=== PATIENT | male | born 1990 | race Two or more races ===

== ENCOUNTER 2017-06-10 10:48 | Inpatient (IN) | payer OTHER ==
[2017-06-10 11:36] VITALS: BMI 22.4
--- NOTE | 2017-06-10 15:00 | HP ---
COWS - Scale Resting Pulse: 0= [place] 80 or Below Sweatin=Flushed/Facial Moisture Restless Observation: 1= Difficult to Sit Still Pupil Size: 0= Normal to Room Light Bone or Joint Aches: 2= Severe Diffuse Aches Runny Nose/ Eye Tearin= Runny Nose/Eyes GI Upset > 30mins: 2= Nausea/Diarrhea Tremor Observation: 2= Slight Tremor Visible Yawning Observation: 2= >3x During Session Anxiety or Irritability: 2=Irritable/Anxious Goose Flesh Skin: 3=Piloerection COWS Score: 18 CIWA Score - CIWA Score Nausea/Vomitin-Mild Nausea/No Vomiting Muscle Tremors: 4-Moderate,w/Arms Extend Anxiety: 3 Agitation: 3 Paroxysmal Sweats: 3 Orientation: 0-Oriented Tacttile Disturbances: 0-None Auditory Disturbances: 0-None Visual Disturbances: 0-None Headache: 1-Very Mild CIWA-Ar Total Score: 15 Admission ROS BHS - HPI Chief Complaint: I need to get it right. Allergies/Adverse Reactions: Allergies Allergy/AdvReac Type Severity Reaction Status Date / Time No Known Allergies Allergy Verified 06/10/17 12:28 History of Present Illness: pt is a 26yr old male with a history of percocet, heroin, xanax dependence seeking detox for treatment. this is his first time in detox. Exam Limitations: No Limitations - Ebola screening Have you traveled outside of the country in the last 21 days: No Have you had contact with anyone from an Ebola affected area: No Have you been sick,other than usual withdrawal symptoms: No Do you have a fever: No - Review of Systems Constitutional: Chills, Diaphoresis, Loss of Appetite, Night Sweats, Changes in sleep EENT: reports: Tearing, Nose Congestion Respiratory: reports: No Symptoms reported Cardiac: reports: No Symptoms Reported GI: reports: Constipated, Poor Appetite, Poor Fluid Intake : reports: No Symptoms Reported Musculoskeletal: reports: Back Pain Integumentary: reports: Flushing, Sweating Neuro: reports: Tingling, Tremors Endocrine: reports: Excessive Sweating, Flushing, Intolerance to Cold, Intolerance to Heat Hematology: reports: No Symptoms Reported Psychiatric: reports: Judgement Intact, Mood/Affect Appropiate, Orientated x3, Agitated, Anxious Other Systems: Reviewed and Negative Patient History - Patient Medical History Hx Anemia: No Hx Asthma: No Hx Chronic Obstructive Pulmonary Disease (COPD): No Hx Cancer: No Hx Cardiac Disorders: No Hx Congestive Heart Failure: No Hx Hypertension: No Hx Hypercholesterolemia: No Hx Pacemaker: No HX Cerebrovascular Accident: No Hx Seizures: No Hx Dementia: No Hx Diabetes: No Hx Gastrointestinal Disorders: No Hx Liver Disease: No Hx Genitourinary Disorders: No Hx Sexually Transmitted Disorders: No Hx Renal Disease (ESRD): No Hx Thyroid Disease: No Hx Human Immunodeficiency Virus (HIV): No Hx Hepatitis C: No Hx Depression: Yes Hx Suicide Attempt: No (denies) Hx Bipolar Disorder: No Hx Schizophrenia: No - Patient Surgical History Past Surgical History: No Hx Neurologic Surgery: No Hx Cataract Extraction: No Hx Cardiac Surgery: No Hx Lung Surgery: No Hx Breast Surgery: No Hx Breast Biopsy: No Hx Abdominal Surgery: No Hx Appendectomy: No Hx Cholecystectomy: No Hx Genitourinary Surgery: No Hx Section: No Hx Orthopedic Surgery: No - PPD History Previous Implant?: Yes Documented Results: Negative w/o proof Implanted On Prior R Admission?: No PPD to be Administered?: Yes - Reproductive History Patient is a Female of Child Bearing Age (11 -55 yrs old): No - Smoking Cessation Smoking history: Current every day smoker Have you smoked in the past 12 months: Yes Aproximately how many cigarettes per day: 20 Hx Chewing Tobacco Use: No Initiated information on smoking cessation: Yes 'Breaking Loose' booklet given: 06/10/17 - Substance & Tx. History Hx Alcohol Use: Yes Hx Substance Use: Yes Substance Use Type: Alcohol, Cocaine, Heroin, Marijuana, Opiates Hx Substance Use Treatment: Yes - Substances Abused Heroin Route: Inhalation Frequency: 1-3 times last 30 days Amount used: 1 bag Age of first use: 26 Date of Last Use: 06/09/17 Percocet Route: Oral Frequency: Daily Amount used: 5-6 tabs. (10-325 mg.) Age of first use: 16 Date of Last Use: 06/09/17 Xanax Route: Oral Frequency: 3-6 times per week Amount used: 6-8 mg. Age of first use: 26 Date of Last Use: 06/08/17 Family Disease History - Family Disease History Family History: Denies Admission Physical Exam BHS - Vital Signs Vital Signs: Vital Signs - 24 hr 11/30/17 11:32 Temperature 96.8 F L Pulse Rate 80 Respiratory 20 Rate Blood Pressure 120/70 - Physical General Appearance: Yes: Appropriately Dressed, Moderate Distress, Tremorous, Irritable, Sweating, Anxious HEENTM: Yes: Normal Voice, Hearing Decreased, Nasal Congestion, Rhinorrhea Respiratory: Yes: Lungs Clear, Normal Breath Sounds, No Respiratory Distress Neck: Yes: No masses,lesions,Nodules Breast: Yes: Within Normal Limits Cardiology: Yes: Regular Rhythm, Regular Rate, S1, S2 Abdominal: Yes: Normal Bowel Sounds, Non Tender, Flat Genitourinary: Yes: Within Normal Limits Back: Yes: Normal Inspection Musculoskeletal: Yes: full range of Motion, Back pain Extremities: Yes: Normal Inspection, Normal Range of Motion, Tremors Neurological: Yes: Fully Oriented, Alert, Normal Response Integumentary: Yes: Normal Color, Diaphoresis Lymphatic: Yes: Within Normal Limits - Diagnostic (1) Opioid dependence with withdrawal Current Visit: Yes Status: Chronic (2) Sedative, hypnotic or anxiolytic dependence with withdrawal, uncomplicated Current Visit: Yes Status: Chronic (3) Nicotine dependence Current Visit: Yes Status: Chronic Qualifiers: Nicotine product type: cigarettes Substance use status: uncomplicated Qualified Code(s): F17.210 - Nicotine dependence, cigarettes, uncomplicated Cleared for Admission [facility] - Detox or Rehab [facility] Level of Care: Medically Managed Detox Regimen/Protocol: Methadone/Valium [facility] Breath Alcohol Content Breath Alcohol Content: 0 Urine Drug Screen - Results Drug Screen Negative: No Urine Drug Screen Results: THC-Marijuana, OPI-Opiates, BZO-Benzodiazepines, OXY- Oxycodone
[2017-06-10] MEDS ORDERED: guaiFENesin/D-METHORPHAN HB 10 ML UNIT-DOSE CUPS PO PRN (15:08)
[2017-06-10] MEDS ORDERED: MENTHOL/PHENOL 1 EACH UD MM PRN (15:08)
[2017-06-10] MEDS ORDERED: MAGNESIUM CITRATE 300 ML BOTTLE PO PRN (15:08)
[2017-06-10] MEDS ORDERED: IBUPROFEN 400 MG TABLET (FP) PO PRN (15:08)
[2017-06-10] MEDS ORDERED: hydrOXYzine PAMOATE 50 MG CAPSULE (FP) PO PRN (15:08)
[2017-06-10] MEDS ORDERED: LOPERAMIDE HCL 2 MG CAPSULE PO PRN (15:08)
[2017-06-10] MEDS ORDERED: ACETAMINOPHEN 325 MG TABLET (FP) PO PRN (15:08)
[2017-06-10] MEDS ORDERED: MAGNESIUM HYDROX 2400MG/30ML ORAL SUSPENSION 30 ML CUP PO PRN (15:08)
[2017-06-10] MEDS ORDERED: NICOTINE POLACRILEX 4 MG GUM BUC PRN (15:08)
[2017-06-10] MEDS ORDERED: P-EPHED 60MG/TRIPROLIDI 2.5MG TABLET PO PRN (15:08)
[2017-06-10] MEDS ORDERED: MAG HYDROX/AL HYDROX/SIMETH 30 ML UNIT-DOSE CUP PO PRN (15:08)
[2017-06-10] MEDS ORDERED: diazePAM 5 MG TABLET PO ONE (15:15)
[2017-06-10] MEDS ORDERED: METHADONE HCL 10 MG TABLET (FOR DETOX USE ONLY) PO ONE ×2 (15:16→23:00)
[2017-06-10] MEDS: diazePAM 5 MG TABLET PO PRN (15:42)
--- NOTE | 2017-06-10 15:56 | CONSULT ---
[facility] Psychiatric Consult - Data Date of interview: 06/10/17 Admission source: [facility] Identifying data: This is 26 years old male with no psychiatric hospitalization history intoxicated with: Opioids, Xanax and Nicotine Substance Abuse History: - Smoking Cessation. Smoking history: Current every day smoker. Have you smoked in the past 12 months: Yes. Aproximately how many cigarettes per day: 20. Hx Chewing Tobacco Use: No. Initiated information on smoking cessation: Yes. 'Breaking Loose' booklet given: 06/10/17. - Substance & Tx. History. Hx Alcohol Use: Yes. Hx Substance Use: Yes. Substance Use Type : Alcohol, Cocaine, Heroin, Marijuana, Opiates. Hx Substance Use Treatment: Yes. - Substances Abused. Heroin. Route: Inhalation. Frequency: 1-3 times last 30 days. Amount used: 1 bag. Age of first use: 26. Date of Last Use: 06/09/17. Percocet. Route: Oral. Frequency: Daily. Amount used: 5-6 tabs. (10-325 mg.). Age of first use: 16. Date of Last Use: 06/09/17. Xanax. Route: Oral. Frequency: 3-6 times per week. Amount used: 6-8 mg. Age of first use: 26. Date of Last Use: 06/08/17 Medical History: Denies any significant medical issues Psychiatric History: Patient reports history of anxiety and insomnia, reports takiong prior to admission: Trazodone 100mg po qhs Physical/Sexual Abuse/Trauma History: Denies Additional Comment: Trazodone 100mg po qhs Mental Status Exam - Mental Status Exam Alert and Oriented to: Person Cognitive Function: Fair Patient Appearance: Unkempt Mood: Anxious Affect: Mood Congruent Patient Behavior: Cooperative Speech Pattern: Appropriate Voice Loudness: Normal Thought Process: Goal Oriented Thought Disorder: Being Controlled Hallucinations: Denies Suicidal Ideation: Denies Homicidal Ideation: Denies Insight/Judgement: Fair Sleep: Difficulty falling asleep Appetite: Weight loss Muscle strength/Tone: Normal Gait/Station: Normal Additional Comments: Trazodone 100mg po qhs Psychiatric Findings - Problem List ([place] 1, 2,3) (1) Drug-induced mood disorder Current Visit: Yes Status: Acute (2) Nicotine dependence Current Visit: Yes Status: Chronic Qualifiers: Nicotine product type: cigarettes Substance use status: uncomplicated Qualified Code(s): F17.210 - Nicotine dependence, cigarettes, uncomplicated (3) Opioid dependence with withdrawal Current Visit: Yes Status: Chronic (4) Sedative, hypnotic or anxiolytic dependence with withdrawal, uncomplicated Current Visit: Yes Status: Chronic - Initial Treatment Plan Initial Treatment Plan: Trazodone 100mg po qhs
[2017-06-10 18:11] LABS: HIV 1 & 2 AB NEGATIVE; HIV 1 AGp24 NEGATIVE
[2017-06-10] MEDS: traZODone HCL 100 MG TABLET (FP) PO SCH (22:08)
[2017-06-10] MEDS: THIAMINE HCL 100 MG TABLET (FP) PO SCH (22:08)
[2017-06-10] MEDS: diazePAM 5 MG TABLET PO SCH (22:08)
[2017-06-11 03:09] LABS: URINE APPEARANCE SLCLOUDY; URINE BILIRUBIN NEGATIVE (NEGATIVE); URINE BLOOD NEGATIVE (NEGATIVE); URINE COLOR AMBER; URINE GLUCOSE (UA) NEGATIVE (NEGATIVE); URINE KETONE TRACE (NEGATIVE); URINE NITRITE NEGATIVE (NEGATIVE); URINE PROTEIN NEGATIVE (NEGATIVE)
[2017-06-11] MEDS: diazePAM 5 MG TABLET PO SCH ×3 (05:30→22:11)
[2017-06-11 09:49] LABS: MCH 28.8 pg (25.7-33.7); MCHC 33.1 g/dl (32.0-35.9); MEAN PLT VOLUME 10.2 fl (7.5-11.1); PLATELET COUNT 218 K/MM3 (134-434); RDW 13.7 % (11.9-15.9); WHITE BLOOD COUNT 8.6 K/mm3 (4.0-10.0)
[2017-06-11] MEDS ORDERED: METHADONE HCL 10 MG TABLET (FOR DETOX USE ONLY) PO SCH (10:00)
--- NOTE | 2017-06-11 10:15 | EKG ---
Test Reason : Blood Pressure : / mmHG Vent. Rate : 059 BPM Atrial Rate : 059 BPM P-R Int : 144 ms QRS Dur : 110 ms QT Int : 430 ms P-R-T Axes : 043 019 030 degrees QTc Int : 425 ms SINUS BRADYCARDIA INCOMPLETE RIGHT BUNDLE BRANCH BLOCK NO PREVIOUS ECGS AVAILABLE Confirmed by MIRNA MACE MD ([id number]) on 06/11/2017 10:15:21 AM Referred By: Confirmed By:MIRNA MACE MD
[2017-06-11 10:28] LABS: ALBUMIN 4.1 g/dl (3.4-5.0); ALK PHOS 57 U/L (45-117); ANION GAP 6 (8-16); BILIRUBIN,TOTAL 0.5 mg/dL (0.2-1.0); CO2 34 mmol/L (21-32); CREATININE 0.6 mg/dL (0.7-1.3); GLUCOSE,RANDOM 96 mg/dL (74-106); SGOT/AST 17 U/L (15-37); SGPT/ALT 21 U/L (12-78); TOT PROT 8.1 g/dl (6.4-8.2)
--- NOTE | 2017-06-11 10:35 | PN ---
[facility] CIWA - CIWA Score Nausea/Vomitin-Mild Nausea/No Vomiting Muscle Tremors: 3 Anxiety: 4-Mod. Anxious/Guarded Agitation: 3 Paroxysmal Sweats: 3 Orientation: 0-Oriented Tacttile Disturbances: 0-None Auditory Disturbances: 0-None Visual Disturbances: 0-None Headache: 0-None Present CIWA-Ar Total Score: 14 BHS COWS - Scale Resting Pulse: 0= [place] 80 or Below Sweatin=Flushed/Facial Moisture Restless Observation: 1= Difficult to Sit Still Pupil Size: 0= Normal to Room Light Bone or Joint Aches: 1= Mild Discomfort Runny Nose/ Eye Tearin= Runny Nose/Eyes GI Upset > 30mins: 2= Nausea/Diarrhea Tremor Observation of Outstretched Hands: 2= Slight Tremor Visible Yawning Observation: 1= 1-2x During Session Anxiety or Irritability: 2=Irritable/Anxious Goose Flesh Skin: 0=Smooth Skin COWS Score: 13 S Progress Note (SOAP) Subjective: Sweating,anxiety,tremors,nausea,interrupted sleep,restless,muscle aches. Objective: 06/11/17 10:34 Vital Signs - 8 hr 06/11/17 06/11/17 06/11/17 04:19 06:32 09:55 Temperature 97.8 F 97.9 F Pulse Rate 51 L 61 Respiratory 18 18 18 Rate Blood Pressure 101/51 131/61 Laboratory Tests 06/10/17 06/11/17 06/11/17 13:00 00:00 06:00 WBC 8.6 RBC 4.60 Hgb 13.2 Hct 40.0 MCV 87.0 MCH 28.8 MCHC 33.1 RDW 13.7 Plt Count 218 MPV 10.2 Sodium Potassium Chloride Carbon Dioxide Anion Gap BUN Creatinine Creat Clearance w eGFR Random Glucose Calcium Total Bilirubin AST ALT Alkaline Phosphatase Total Protein Albumin Urine Color Gissel Urine Appearance Slcloudy Urine pH 6.0 Ur Specific [place] 1.031 Urine Protein Negative Urine Glucose (UA) Negative Urine Ketones Trace H Urine Blood Negative Urine Nitrite Negative Urine Bilirubin Negative Urine Urobilinogen 2.0 HIV 1&2 Antibody Screen Negative HIV P24 Antigen Negative 06/11/17 06:00 WBC RBC Hgb Hct MCV MCH MCHC RDW Plt Count MPV Sodium 137 Potassium 4.5 Chloride 97 L Carbon Dioxide 34 H Anion Gap 6 L BUN 10 Creatinine 0.6 L Creat Clearance w eGFR > 60 Random Glucose 96 Calcium 9.0 Total Bilirubin 0.5 AST 17 ALT 21 Alkaline Phosphatase 57 Total Protein 8.1 Albumin 4.1 Urine Color Urine Appearance Urine pH Ur Specific [place] Urine Protein Urine Glucose (UA) Urine Ketones Urine Blood Urine Nitrite Urine Bilirubin Urine Urobilinogen HIV 1&2 Antibody Screen HIV P24 Antigen labs noted Assessment: 06/11/17 10:35 Withdrawal sx. Plan: Continue detox
[2017-06-11] MEDS: PRENATAL VITAMINS W/ FOLIC ACID TABLET (FP) PO SCH (10:51)
[2017-06-11] MEDS: NICOTINE 21 MG/24 HOURS TOPICAL PATCH TD SCH (10:51)
[2017-06-11 12:47] LABS: URINE LEUK ESTERASE Negative (NEGATIVE)
[2017-06-11] MEDS: traZODone HCL 100 MG TABLET (FP) PO SCH (22:11)
[2017-06-11] MEDS: THIAMINE HCL 100 MG TABLET (FP) PO SCH (22:11)
[2017-06-12] MEDS: diazePAM 5 MG TABLET PO SCH ×2 (10:36→22:40)
[2017-06-12] MEDS: METHADONE HCL 5 MG TABLET (FOR DETOX USE ONLY) PO SCH (10:36)
[2017-06-12] MEDS: PRENATAL VITAMINS W/ FOLIC ACID TABLET (FP) PO SCH (10:36)
[2017-06-12] MEDS: NICOTINE 21 MG/24 HOURS TOPICAL PATCH TD SCH (10:36)
--- NOTE | 2017-06-12 13:36 | PN ---
S CIWA - CIWA Score Nausea/Vomitin-No Nausea/No Vomiting Muscle Tremors: 3 Anxiety: 4-Mod. Anxious/Guarded Agitation: 3 Paroxysmal Sweats: 3 Orientation: 0-Oriented Tacttile Disturbances: 0-None Auditory Disturbances: 0-None Visual Disturbances: 0-None Headache: 0-None Present CIWA-Ar Total Score: 13 BHS COWS - Scale Resting Pulse: 0= [place] 80 or Below Sweatin=Flushed/Facial Moisture Restless Observation: 1= Difficult to Sit Still Pupil Size: 0= Normal to Room Light Bone or Joint Aches: 1= Mild Discomfort Runny Nose/ Eye Tearin= Nasal Congestion GI Upset > 30mins: 1= Stomach Cramp Tremor Observation of Outstretched Hands: 2= Slight Tremor Visible Yawning Observation: 1= 1-2x During Session Anxiety or Irritability: 2=Irritable/Anxious Goose Flesh Skin: 0=Smooth Skin COWS Score: 11 S Progress Note (SOAP) Subjective: Anxiety,tremors,sweating,interrupted sleep,restless Objective: 06/12/17 13:35 Vital Signs - 8 hr 06/12/17 06/12/17 06:00 10:00 Temperature 97.7 F 97.7 F Pulse Rate 49 L 57 L Respiratory 18 18 Rate Blood Pressure 127/68 133/72 Laboratory Last Values WBC 8.6 K/mm3 (4.0-10.0) 06/11/17 06:00 RBC 4.60 M/mm3 (4.00-5.60) 06/11/17 06:00 Hgb 13.2 GM/dL (11.7-16.9) 06/11/17 06:00 Hct 40.0 % (35.4-49) 06/11/17 06:00 MCV 87.0 fl (80-96) 06/11/17 06:00 MCH 28.8 pg (25.7-33.7) 06/11/17 06:00 MCHC 33.1 g/dl (32.0-35.9) 06/11/17 06:00 RDW 13.7 % (11.9-15.9) 06/11/17 06:00 Plt Count 218 K/MM3 (134-434) 06/11/17 06:00 MPV 10.2 fl (7.5-11.1) 06/11/17 06:00 Sodium 137 mmol/L (136-145) 06/11/17 06:00 Potassium 4.5 mmol/L (3.5-5.1) 06/11/17 06:00 Chloride 97 mmol/L (98-107) L 06/11/17 06:00 Carbon Dioxide 34 mmol/L (21-32) H 06/11/17 06:00 Anion Gap 6 (8-16) L 06/11/17 06:00 BUN 10 mg/dL (7-18) 06/11/17 06:00 Creatinine 0.6 mg/dL (0.7-1.3) L 06/11/17 06:00 Creat Clearance w eGFR > 60 (>60) 06/11/17 06:00 Random Glucose 96 mg/dL (74-106) 06/11/17 06:00 Calcium 9.0 mg/dL (8.5-10.1) 06/11/17 06:00 Total Bilirubin 0.5 mg/dL (0.2-1.0) 06/11/17 06:00 AST 17 U/L (15-37) 06/11/17 06:00 ALT 21 U/L (12-78) 06/11/17 06:00 Alkaline Phosphatase 57 U/L (45-117) 06/11/17 06:00 Total Protein 8.1 g/dl (6.4-8.2) 06/11/17 06:00 Albumin 4.1 g/dl (3.4-5.0) 06/11/17 06:00 Urine Color Gissel 06/11/17 00:00 Urine Appearance Slcloudy 06/11/17 00:00 Urine pH 6.0 (5.0-8.0) 06/11/17 00:00 Ur Specific [place] 1.031 (1.001-1.035) 06/11/17 00:00 Urine Protein Negative (NEGATIVE) 06/11/17 00:00 Urine Glucose (UA) Negative (NEGATIVE) 06/11/17 00:00 Urine Ketones Trace (NEGATIVE) H 06/11/17 00:00 Urine Blood Negative (NEGATIVE) 06/11/17 00:00 Urine Nitrite Negative (NEGATIVE) 06/11/17 00:00 Urine Bilirubin Negative (NEGATIVE) 06/11/17 00:00 Urine Urobilinogen 2.0 mg/dL (0.2-1.0) 06/11/17 00:00 Ur Leukocyte Esterase Negative (NEGATIVE) 06/11/17 00:00 RPR Titer Nonreactive (NONREACTIVE) 06/11/17 06:00 HIV 1&2 Antibody Screen Negative 06/10/17 13:00 HIV P24 Antigen Negative 06/10/17 13:00 labs noted Assessment: 06/12/17 13:36 Withdrawal sx. Plan: Continue detox
[2017-06-12] MEDS: diazePAM 5 MG TABLET PO PRN (17:04)
[2017-06-12] MEDS: THIAMINE HCL 100 MG TABLET (FP) PO SCH (22:40)
[2017-06-12] MEDS: traZODone HCL 100 MG TABLET (FP) PO SCH (22:40)
[2017-06-13] MEDS: PRENATAL VITAMINS W/ FOLIC ACID TABLET (FP) PO SCH (10:33)
[2017-06-13] MEDS: METHADONE HCL 5 MG TABLET (FOR DETOX USE ONLY) PO SCH (10:34)
[2017-06-13] MEDS: diazePAM 5 MG TABLET PO SCH ×2 (10:34→22:11)
[2017-06-13] MEDS: NICOTINE 21 MG/24 HOURS TOPICAL PATCH TD SCH (10:34)
--- NOTE | 2017-06-13 11:27 | PN ---
BHS Progress Note (SOAP) Subjective: tremor sweating restlessness GI upset Objective: 06/13/17 11:26 Vital Signs Temperature 96.8 F L 06/13/17 09:46 Pulse Rate 51 L 06/13/17 09:46 Respiratory Rate 18 06/13/17 09:46 Blood Pressure 135/78 06/13/17 09:46 O2 Sat by Pulse Oximetry (%) Laboratory Last Values WBC 8.6 K/mm3 (4.0-10.0) 06/11/17 06:00 RBC 4.60 M/mm3 (4.00-5.60) 06/11/17 06:00 Hgb 13.2 GM/dL (11.7-16.9) 06/11/17 06:00 Hct 40.0 % (35.4-49) 06/11/17 06:00 MCV 87.0 fl (80-96) 06/11/17 06:00 MCH 28.8 pg (25.7-33.7) 06/11/17 06:00 MCHC 33.1 g/dl (32.0-35.9) 06/11/17 06:00 RDW 13.7 % (11.9-15.9) 06/11/17 06:00 Plt Count 218 K/MM3 (134-434) 06/11/17 06:00 MPV 10.2 fl (7.5-11.1) 06/11/17 06:00 Sodium 137 mmol/L (136-145) 06/11/17 06:00 Potassium 4.5 mmol/L (3.5-5.1) 06/11/17 06:00 Chloride 97 mmol/L (98-107) L 06/11/17 06:00 Carbon Dioxide 34 mmol/L (21-32) H 06/11/17 06:00 Anion Gap 6 (8-16) L 06/11/17 06:00 BUN 10 mg/dL (7-18) 06/11/17 06:00 Creatinine 0.6 mg/dL (0.7-1.3) L 06/11/17 06:00 Creat Clearance w eGFR > 60 (>60) 06/11/17 06:00 Random Glucose 96 mg/dL (74-106) 06/11/17 06:00 Calcium 9.0 mg/dL (8.5-10.1) 06/11/17 06:00 Total Bilirubin 0.5 mg/dL (0.2-1.0) 06/11/17 06:00 AST 17 U/L (15-37) 06/11/17 06:00 ALT 21 U/L (12-78) 06/11/17 06:00 Alkaline Phosphatase 57 U/L (45-117) 06/11/17 06:00 Total Protein 8.1 g/dl (6.4-8.2) 06/11/17 06:00 Albumin 4.1 g/dl (3.4-5.0) 06/11/17 06:00 Urine Color Gissel 06/11/17 00:00 Urine Appearance Slcloudy 06/11/17 00:00 Urine pH 6.0 (5.0-8.0) 06/11/17 00:00 Ur Specific [place] 1.031 (1.001-1.035) 06/11/17 00:00 Urine Protein Negative (NEGATIVE) 06/11/17 00:00 Urine Glucose (UA) Negative (NEGATIVE) 06/11/17 00:00 Urine Ketones Trace (NEGATIVE) H 06/11/17 00:00 Urine Blood Negative (NEGATIVE) 06/11/17 00:00 Urine Nitrite Negative (NEGATIVE) 06/11/17 00:00 Urine Bilirubin Negative (NEGATIVE) 06/11/17 00:00 Urine Urobilinogen 2.0 mg/dL (0.2-1.0) 06/11/17 00:00 Ur Leukocyte Esterase Negative (NEGATIVE) 06/11/17 00:00 RPR Titer Nonreactive (NONREACTIVE) 06/11/17 06:00 HIV 1&2 Antibody Screen Negative 06/10/17 13:00 HIV P24 Antigen Negative 06/10/17 13:00 lab noted Assessment: 06/13/17 11:26 withdrawal sx Plan: continue detox
[2017-06-13] MEDS: THIAMINE HCL 100 MG TABLET (FP) PO SCH (22:11)
[2017-06-13] MEDS: traZODone HCL 100 MG TABLET (FP) PO SCH (22:11)
--- NOTE | 2017-06-14 08:35 | DS ---
[facility] Detox Discharge Summary Admission Date: 06/10/17 Discharge Date: 06/14/17 - History Present History: Opioid Dependence, Sedative Dependence - Physical Exam Results Vital Signs: Vital Signs Temperature 97.9 F 06/14/17 06:00 Pulse Rate 61 06/14/17 06:00 Respiratory Rate 18 06/14/17 06:00 Blood Pressure 97/61 06/14/17 06:00 O2 Sat by Pulse Oximetry (%) - Treatment Hospital Course: Detox Protocol Followed, Detoxed Safely, Responded well, Discharged Condition Good, Rehab Referral Accepted - Medication Discharge Medications: Ambulatory Orders Trazodone HCl [Desyrel -] 50 mg PO HS 06/10/17 Trazodone HCl [Desyrel -] 100 mg PO HS #30 tablet 06/10/17 - Diagnosis (1) Opioid dependence with withdrawal Current Visit: Yes Status: Chronic (2) Sedative, hypnotic or anxiolytic dependence with withdrawal, uncomplicated Current Visit: Yes Status: Chronic (3) Nicotine dependence Current Visit: Yes Status: Chronic Qualifiers: Nicotine product type: cigarettes Substance use status: uncomplicated Qualified Code(s): F17.210 - Nicotine dependence, cigarettes, uncomplicated - AMA Did Patient Leave Against Medical Advice: No
[2017-06-14 09:35] VITALS: BP 132/76; PULSE 66; TEMP 97.7
[2017-06-14] MEDS: PRENATAL VITAMINS W/ FOLIC ACID TABLET (FP) PO SCH (09:49)
[2017-06-14] MEDS: NICOTINE 21 MG/24 HOURS TOPICAL PATCH TD SCH (09:54)
[2017-06-14] MEDS ORDERED: diazePAM 5 MG TABLET PO SCH (10:00)
[2017-06-14] MEDS ORDERED: METHADONE HCL 10 MG TABLET (FOR DETOX USE ONLY) PO SCH (10:00)
--- NOTE | 2017-06-14 13:34 | EKG ---
Test Reason : Blood Pressure : / mmHG Vent. Rate : 047 BPM Atrial Rate : 047 BPM P-R Int : 144 ms QRS Dur : 102 ms QT Int : 470 ms P-R-T Axes : 050 034 041 degrees QTc Int : 415 ms SINUS BRADYCARDIA OTHERWISE NORMAL ECG WHEN COMPARED WITH ECG OF 10-JUN-2017 15:54, INCOMPLETE RIGHT BUNDLE BRANCH BLOCK IS NO LONGER PRESENT Confirmed by CON VAUGHN MD ([id number]) on 06/14/2017 1:33:32 PM Referred By: Confirmed By:CON VAUGHN MD
[2017-06-15] MEDS ORDERED: METHADONE HCL 5 MG TABLET (FOR DETOX USE ONLY) PO SCH (06:00)
== END 2017-06-14 10:28 | disposition home or self-care (01) | DRG 775 ==
LOC: YASAS 10:48 → Y6N 13:27
PROVIDERS: ADMIT Internal Medicine; ATTEND Internal Medicine
PROC: HZ2ZZZZ Detoxification Services for Substance Abuse Treatment (ICD-10-PCS; principal; 2017-06-10)
DX: F13.230 Sedative, hypnotic or anxiolytic dependence with withdrawal, uncomplicated (principal); F10.230 Alcohol dependence with withdrawal, uncomplicated; F17.210 Nicotine dependence, cigarettes, uncomplicated; F19.24 Other psychoactive substance dependence with psychoactive substance-induced mood disorder; F32.9 Major depressive disorder, single episode, unspecified
CPT/HCPCS: 36415; 80053; 81003; 85027; 86593; 87389; 93005; 93010

== ENCOUNTER 2020-11-19 15:27 | Inpatient (IN) | payer OTHER ==
[2020-11-19 16:20] VITALS: BMI 24.0
[2020-11-19] MEDS ORDERED: BISMUTH SUBSALICYLATE 524 MG/30 ML UD PO PRN (18:41)
[2020-11-19] MEDS ORDERED: ONDANSETRON *ODT* 4 MG TABLET SL PRN (18:41)
[2020-11-19] MEDS ORDERED: MAGNESIUM HYDROX 2400MG/30ML ORAL SUSPENSION 30 ML CUP PO PRN (18:41)
[2020-11-19] MEDS ORDERED: IBUPROFEN 400 MG TABLET (FP) PO PRN (18:41)
[2020-11-19] MEDS ORDERED: ACETAMINOPHEN 325 MG TABLET (FP) PO PRN ×2 (18:41)
[2020-11-19] MEDS ORDERED: MAG HYDROX/AL HYDROX/SIMETH 30 ML UNIT-DOSE CUP PO PRN (18:41)
[2020-11-19] MEDS ORDERED: MAGNESIUM CITRATE 300 ML BOTTLE PO PRN (18:41)
[2020-11-19] MEDS ORDERED: MENTHOL/PHENOL 1 EACH UD MM PRN (18:41)
[2020-11-19] MEDS ORDERED: METHADONE HCL 10 MG TABLET (FOR DETOX USE ONLY) PO ONE (18:50)
[2020-11-19] MEDS ORDERED: cloNIDine HCL 0.1 MG TABLET PO PRN (18:50)
[2020-11-19] MEDS ORDERED: traZODone HCL 50 MG TABLET (FP) PO ONE (21:00)
[2020-11-19] MEDS: NICOTINE POLACRILEX 2 MG GUM BUC PRN (21:54)
[2020-11-19] MEDS: METHOCARBAMOL 500 MG TABLET PO PRN (22:22)
[2020-11-19] MEDS: MELATONIN 5 MG TABLETS PO SCH (22:23)
[2020-11-19] MEDS: THIAMINE HCL 100 MG TABLET (FP) PO SCH (22:23)
[2020-11-20] MEDS ORDERED: METHADONE HCL 10 MG TABLET ONE (09:25)
[2020-11-20] MEDS ORDERED: METHADONE HCL 5 MG TABLET ONE (09:25)
[2020-11-20] MEDS ORDERED: METHADONE 10 MG, METHADONE 5 MG PO ONE (10:00)
[2020-11-20] MEDS ORDERED: METHADONE HCL 10 MG TABLET (FOR DETOX USE ONLY) PO ONE (10:00)
[2020-11-20 10:07] LABS: HEMATOCRIT 40.6 % (35.4-49); HEMOGLOBIN 13.8 GM/dL (11.7-16.9); MCH 30.2 pg (25.7-33.7); MEAN CELL VOLUME 88.8 fl (80-96); MEAN PLT VOLUME 9.8 fl (7.5-11.1); PLATELET COUNT 241 K/MM3 (134-434); RBC 4.57 M/mm3 (4.00-5.60); RDW 14.4 % (11.9-15.9); WHITE BLOOD COUNT 5.9 K/mm3 (4.0-10.0)
[2020-11-20 10:24] LABS: CALCIUM 8.9 mg/dL (8.5-10.1)
[2020-11-20 10:25] LABS: ALBUMIN 3.7 g/dl (3.4-5.0); BLOOD UREA NITROGEN 8.8 mg/dL (7-18); CREATININE 0.7 mg/dL (0.55-1.3)
[2020-11-20 10:27] LABS: BILIRUBIN,TOTAL 0.2 mg/dL (0.2-1); TOT PROT 7.4 g/dl (6.4-8.2)
[2020-11-20] MEDS: METHOCARBAMOL 500 MG TABLET PO PRN (10:41)
[2020-11-20] MEDS: PRENATAL VITAMINS W/ FOLIC ACID TABLET (FP) PO SCH (10:42)
[2020-11-20] MEDS: NICOTINE 14 MG/24 HOURS TOPICAL PATCH TD SCH (10:42)
[2020-11-20] MEDS: NICOTINE POLACRILEX 2 MG GUM BUC PRN ×3 (10:45→22:35)
[2020-11-20] MEDS: MELATONIN 5 MG TABLETS PO SCH (22:33)
[2020-11-20] MEDS: hydrOXYzine PAMOATE 25 MG CAPSULE (FP) PO PRN (22:33)
[2020-11-20] MEDS: THIAMINE HCL 100 MG TABLET (FP) PO SCH (22:33)
[2020-11-20] MEDS: traZODone HCL 50 MG TABLET (FP) PO SCH (22:33)
[2020-11-21] MEDS ORDERED: METHADONE HCL 10 MG TABLET (FOR DETOX USE ONLY) PO ONE (10:00)
[2020-11-21] MEDS: PRENATAL VITAMINS W/ FOLIC ACID TABLET (FP) PO SCH (10:18)
[2020-11-21] MEDS: NICOTINE 14 MG/24 HOURS TOPICAL PATCH TD SCH (10:18)
[2020-11-21] MEDS: NICOTINE POLACRILEX 2 MG GUM BUC PRN ×3 (11:52→22:51)
[2020-11-21] MEDS: traZODone HCL 50 MG TABLET (FP) PO SCH (22:46)
[2020-11-21] MEDS: METHOCARBAMOL 500 MG TABLET PO PRN (22:46)
[2020-11-21] MEDS: THIAMINE HCL 100 MG TABLET (FP) PO SCH (22:46)
[2020-11-21] MEDS: hydrOXYzine PAMOATE 25 MG CAPSULE (FP) PO PRN (22:46)
[2020-11-21] MEDS: MELATONIN 5 MG TABLETS PO SCH (22:47)
[2020-11-22] MEDS ORDERED: METHADONE HCL 5 MG TABLET PO ONE (10:00)
[2020-11-22] MEDS: hydrOXYzine PAMOATE 25 MG CAPSULE (FP) PO PRN (10:18)
[2020-11-22] MEDS: NICOTINE 14 MG/24 HOURS TOPICAL PATCH TD SCH (10:19)
[2020-11-22] MEDS: PRENATAL VITAMINS W/ FOLIC ACID TABLET (FP) PO SCH (10:19)
[2020-11-22] MEDS: METHOCARBAMOL 500 MG TABLET PO PRN (10:19)
[2020-11-22 11:20] VITALS: BP 135/80; PULSE 86; TEMP 97.3
== END 2020-11-22 11:53 | disposition home or self-care (01) | DRG 773 ==
LOC: YASAS 15:27 → Y6N 19:03
PROVIDERS: ADMIT Allergy & Immunology; ATTEND Allergy & Immunology
PROC: HZ2ZZZZ Detoxification Services for Substance Abuse Treatment (ICD-10-PCS; principal; 2020-11-19)
DX: F11.23 Opioid dependence with withdrawal (principal); F13.20 Sedative, hypnotic or anxiolytic dependence, uncomplicated; F17.210 Nicotine dependence, cigarettes, uncomplicated; F19.282 Other psychoactive substance dependence with psychoactive substance-induced sleep disorder
CPT/HCPCS: 36415; 80053; 85027; 86780; C9803; J0735; U0003; U0005

== ENCOUNTER 2021-03-03 09:42 | Inpatient (IN) | payer OTHER ==
[2021-03-03 10:06] VITALS: BMI 22.8
[2021-03-03] MEDS ORDERED: MAG HYDROX/AL HYDROX/SIMETH 30 ML UNIT-DOSE CUP PO PRN (12:15)
[2021-03-03] MEDS ORDERED: MAGNESIUM HYDROX 2400MG/30ML ORAL SUSPENSION 30 ML CUP PO PRN (12:15)
[2021-03-03] MEDS ORDERED: METHOCARBAMOL 500 MG TABLET PO PRN (12:15)
[2021-03-03] MEDS ORDERED: cloNIDine HCL 0.1 MG TABLET PO PRN (12:15)
[2021-03-03] MEDS ORDERED: BISMUTH SUBSALICYLATE 524 MG/30 ML PO PRN (12:15)
[2021-03-03] MEDS ORDERED: ONDANSETRON *ODT* 4 MG TABLET SL PRN (12:15)
[2021-03-03] MEDS ORDERED: ACETAMINOPHEN 325 MG TABLET (FP) PO PRN ×2 (12:15)
[2021-03-03] MEDS ORDERED: MAGNESIUM CITRATE 300 ML BOTTLE PO PRN (12:15)
[2021-03-03] MEDS ORDERED: MENTHOL/PHENOL 1 EACH UD MM PRN (12:15)
[2021-03-03] MEDS ORDERED: IBUPROFEN 400 MG TABLET (FP) PO PRN (12:15)
[2021-03-03] MEDS ORDERED: methaDONE HCL 10 MG TABLET (FOR DETOX USE ONLY) PO ONE (14:00)
[2021-03-03] MEDS: diazePAM 5 MG TABLET PO PRN ×2 (14:36→20:19)
[2021-03-03] MEDS: hydrOXYzine PAMOATE 25 MG CAPSULE (FP) PO SCH ×3 (14:37→22:37)
[2021-03-03] MEDS ORDERED: NICOTINE 21 MG/24 HOURS TOPICAL PATCH TD ONE (15:00)
[2021-03-03] MEDS: NICOTINE 10 MG CARTRIDGE (INHALER) IH PRN ×2 (15:53→20:14)
[2021-03-03] MEDS: diazePAM 5 MG TABLET PO SCH ×2 (17:33→22:38)
[2021-03-03] MEDS: NICOTINE POLACRILEX 2 MG GUM BUC PRN ×3 (17:34→22:40)
[2021-03-03] MEDS: MELATONIN 5 MG TABLETS PO SCH (22:37)
[2021-03-03] MEDS: THIAMINE HCL 100 MG TABLET (FP) PO SCH (22:37)
[2021-03-04] MEDS: diazePAM 5 MG TABLET PO SCH ×4 (05:30→22:22)
[2021-03-04] MEDS: NICOTINE 10 MG CARTRIDGE (INHALER) IH PRN ×4 (05:31→22:25)
[2021-03-04] MEDS: NICOTINE POLACRILEX 2 MG GUM BUC PRN ×4 (05:31→22:26)
[2021-03-04] MEDS: hydrOXYzine PAMOATE 25 MG CAPSULE (FP) PO SCH ×5 (05:31→22:21)
[2021-03-04] MEDS ORDERED: methaDONE HCL 10 MG TABLET (FOR DETOX USE ONLY) ONE (09:42)
[2021-03-04] MEDS: NICOTINE 21 MG/24 HOURS TOPICAL PATCH TD SCH (10:28)
[2021-03-04] MEDS: PRENATAL VITAMINS W/ FOLIC ACID TABLET (FP) PO SCH (10:30)
[2021-03-04 11:33] LABS: HEMOGLOBIN 13.7 GM/dL (11.7-16.9); MCH 29.8 pg (25.7-33.7); MCHC 34.2 g/dl (32.0-35.9); MEAN CELL VOLUME 87.1 fl (80-96); MEAN PLT VOLUME 9.7 fl (7.5-11.1); PLATELET COUNT 236 10^3/uL (134-434); RBC 4.59 M/mm3 (4.00-5.60); RDW 13.8 % (11.9-15.9); WHITE BLOOD COUNT 6.2 K/mm3 (4.0-10.0)
[2021-03-04 11:46] LABS: BLOOD UREA NITROGEN 8.2 mg/dL (7-18); CALCIUM 8.9 mg/dL (8.5-10.1)
[2021-03-04 11:47] LABS: ALBUMIN 3.7 g/dl (3.4-5.0)
[2021-03-04 11:50] LABS: CREATININE 0.8 mg/dL (0.55-1.3)
[2021-03-04 11:51] LABS: BILIRUBIN,TOTAL 0.5 mg/dL (0.2-1); TOT PROT 7.5 g/dl (6.4-8.2)
[2021-03-04] MEDS: amLODIPine BESYLATE 5 MG TABLET (FP) PO SCH (12:16)
[2021-03-04] MEDS: MELATONIN 5 MG TABLETS PO SCH (22:21)
[2021-03-04] MEDS: traZODone HCL 50 MG TABLET (FP) PO SCH (22:21)
[2021-03-04] MEDS: THIAMINE HCL 100 MG TABLET (FP) PO SCH (22:22)
[2021-03-05] MEDS: diazePAM 5 MG TABLET PO SCH ×3 (06:02→22:30)
[2021-03-05] MEDS: hydrOXYzine PAMOATE 25 MG CAPSULE (FP) PO SCH ×5 (06:02→22:30)
[2021-03-05] MEDS: NICOTINE 10 MG CARTRIDGE (INHALER) IH PRN ×3 (06:05→22:29)
[2021-03-05] MEDS ORDERED: methaDONE HCL 10 MG TABLET (FOR DETOX USE ONLY) PO ONE (10:00)
[2021-03-05] MEDS: amLODIPine BESYLATE 5 MG TABLET (FP) PO SCH (10:14)
[2021-03-05] MEDS: NICOTINE 21 MG/24 HOURS TOPICAL PATCH TD SCH (10:14)
[2021-03-05] MEDS: NICOTINE POLACRILEX 2 MG GUM BUC PRN ×3 (10:15→19:11)
[2021-03-05] MEDS: PRENATAL VITAMINS W/ FOLIC ACID TABLET (FP) PO SCH (10:15)
[2021-03-05] MEDS: THIAMINE HCL 100 MG TABLET (FP) PO SCH (22:30)
[2021-03-05] MEDS: traZODone HCL 50 MG TABLET (FP) PO SCH (22:30)
[2021-03-05] MEDS: MELATONIN 5 MG TABLETS PO SCH (22:30)
[2021-03-06] MEDS: hydrOXYzine PAMOATE 25 MG CAPSULE (FP) PO SCH ×5 (06:37→22:22)
[2021-03-06] MEDS: diazePAM 5 MG TABLET PO SCH ×2 (06:37→17:31)
[2021-03-06] MEDS ORDERED: methaDONE HCL 10 MG TABLET (FOR DETOX USE ONLY) ONE (09:30)
[2021-03-06] MEDS: NICOTINE 10 MG CARTRIDGE (INHALER) IH PRN ×3 (10:28→20:32)
[2021-03-06] MEDS: NICOTINE 21 MG/24 HOURS TOPICAL PATCH TD SCH (10:29)
[2021-03-06] MEDS: amLODIPine BESYLATE 5 MG TABLET (FP) PO SCH (10:30)
[2021-03-06] MEDS: PRENATAL VITAMINS W/ FOLIC ACID TABLET (FP) PO SCH (10:30)
[2021-03-06] MEDS: diazePAM 5 MG TABLET PO PRN (10:33)
[2021-03-06] MEDS: traZODone HCL 50 MG TABLET (FP) PO SCH (22:22)
[2021-03-06] MEDS: MELATONIN 5 MG TABLETS PO SCH (22:22)
[2021-03-06] MEDS: THIAMINE HCL 100 MG TABLET (FP) PO SCH (22:22)
[2021-03-06] MEDS: NICOTINE POLACRILEX 2 MG GUM BUC PRN (22:23)
[2021-03-07] MEDS: hydrOXYzine PAMOATE 25 MG CAPSULE (FP) PO SCH ×3 (05:59→13:24)
[2021-03-07] MEDS ORDERED: diazePAM 5 MG TABLET PO ONE (06:00)
[2021-03-07] MEDS: NICOTINE 10 MG CARTRIDGE (INHALER) IH PRN ×2 (06:00→10:20)
[2021-03-07] MEDS ORDERED: methaDONE HCL 10 MG TABLET (FOR DETOX USE ONLY) PO ONE (10:00)
[2021-03-07] MEDS: NICOTINE 21 MG/24 HOURS TOPICAL PATCH TD SCH (10:18)
[2021-03-07] MEDS: PRENATAL VITAMINS W/ FOLIC ACID TABLET (FP) PO SCH (10:18)
[2021-03-07] MEDS: amLODIPine BESYLATE 5 MG TABLET (FP) PO SCH (10:18)
[2021-03-07] MEDS: NICOTINE POLACRILEX 2 MG GUM BUC PRN (12:36)
[2021-03-07 12:57] VITALS: BP 126/82; PULSE 77; TEMP 96.9
== END 2021-03-07 15:03 | disposition other institution (70) | DRG 773 ==
LOC: YASAS 09:42 → Y6N 14:11 → Y3N 03-06 12:21
PROVIDERS: ADMIT Allergy & Immunology; ATTEND Allergy & Immunology
PROC: HZ2ZZZZ Detoxification Services for Substance Abuse Treatment (ICD-10-PCS; principal; 2021-03-03)
DX: F11.23 Opioid dependence with withdrawal (principal); F13.230 Sedative, hypnotic or anxiolytic dependence with withdrawal, uncomplicated; F14.20 Cocaine dependence, uncomplicated; F12.20 Cannabis dependence, uncomplicated; F17.210 Nicotine dependence, cigarettes, uncomplicated; F19.280 Other psychoactive substance dependence with psychoactive substance-induced anxiety disorder; F19.282 Other psychoactive substance dependence with psychoactive substance-induced sleep disorder; F19.24 Other psychoactive substance dependence with psychoactive substance-induced mood disorder; F41.8 Other specified anxiety disorders; R63.4 Abnormal weight loss; Z68.22 Body mass index [BMI] 22.0-22.9, adult; Z56.0 Unemployment, unspecified; Z59.0 Homelessness
CPT/HCPCS: 36415; 80053; 85027; 86780; C9803; U0003; U0005

== ENCOUNTER 2021-03-07 15:29 | Inpatient (IN) | payer OTHER ==
[2021-03-07] MEDS ORDERED: MENTHOL/PHENOL 1 EACH UD MM PRN (16:03)
[2021-03-07] MEDS ORDERED: MAGNESIUM CITRATE 300 ML BOTTLE PO PRN (16:03)
[2021-03-07] MEDS ORDERED: IBUPROFEN 400 MG TABLET (FP) PO PRN (16:03)
[2021-03-07] MEDS ORDERED: LOPERAMIDE HCL 2 MG CAPSULE PO PRN (16:03)
[2021-03-07] MEDS ORDERED: ACETAMINOPHEN 325 MG TABLET (FP) PO PRN (16:03)
[2021-03-07] MEDS ORDERED: MAG HYDROX/AL HYDROX/SIMETH 30 ML UNIT-DOSE CUP PO PRN (16:03)
[2021-03-07] MEDS ORDERED: guaiFENesin 200 MG/10 ML 10 ML UNIT-DOSE CUPS PO PRN (16:03)
[2021-03-07] MEDS ORDERED: P-EPHED 60MG/TRIPROLIDI 2.5MG TABLET PO PRN (16:03)
[2021-03-07] MEDS ORDERED: MAGNESIUM HYDROX 2400MG/30ML ORAL SUSPENSION 30 ML CUP PO PRN (16:03)
[2021-03-07] MEDS ORDERED: cloNIDine HCL 0.1 MG TABLET PO PRN (16:07)
[2021-03-07] MEDS ORDERED: METHOCARBAMOL 500 MG TABLET PO PRN (16:08)
[2021-03-07] MEDS: NICOTINE 10 MG CARTRIDGE (INHALER) IH PRN (17:53)
[2021-03-07] MEDS: THIAMINE HCL 100 MG TABLET (FP) PO SCH (22:16)
[2021-03-07] MEDS: traZODone HCL 50 MG TABLET (FP) PO SCH (22:16)
[2021-03-07] MEDS: MELATONIN 5 MG TABLETS PO SCH (22:16)
[2021-03-08] MEDS: PRENATAL VITAMINS W/ FOLIC ACID TABLET (FP) PO SCH (09:55)
[2021-03-08] MEDS: NICOTINE 7 MG/24 HOURS TOPICAL PATCH TD SCH (09:55)
[2021-03-08] MEDS: NICOTINE 10 MG CARTRIDGE (INHALER) IH PRN ×3 (09:56→20:22)
[2021-03-08 14:13] LABS: HIV INTERPRETATION NEGATIVE (NEGATIVE)
[2021-03-08] MEDS: MELATONIN 5 MG TABLETS PO SCH (21:13)
[2021-03-08] MEDS: traZODone HCL 50 MG TABLET (FP) PO SCH (21:13)
[2021-03-08] MEDS: THIAMINE HCL 100 MG TABLET (FP) PO SCH (21:13)
[2021-03-09] MEDS: NICOTINE 10 MG CARTRIDGE (INHALER) IH PRN ×3 (06:18→20:02)
[2021-03-09] MEDS: NICOTINE 7 MG/24 HOURS TOPICAL PATCH TD SCH (09:33)
[2021-03-09] MEDS: PRENATAL VITAMINS W/ FOLIC ACID TABLET (FP) PO SCH (09:33)
[2021-03-09] MEDS: NICOTINE 21 MG/24 HOURS TOPICAL PATCH TD SCH (11:20)
[2021-03-09] MEDS: NICOTINE POLACRILEX 2 MG GUM BC PRN ×3 (12:12→20:03)
[2021-03-09] MEDS: THIAMINE HCL 100 MG TABLET (FP) PO SCH (22:09)
[2021-03-09] MEDS: MELATONIN 5 MG TABLETS PO SCH (22:09)
[2021-03-09] MEDS: traZODone HCL 50 MG TABLET (FP) PO SCH (22:09)
[2021-03-10] MEDS: NICOTINE 10 MG CARTRIDGE (INHALER) IH PRN ×3 (06:40→21:21)
[2021-03-10] MEDS: NICOTINE 21 MG/24 HOURS TOPICAL PATCH TD SCH (09:39)
[2021-03-10] MEDS: PRENATAL VITAMINS W/ FOLIC ACID TABLET (FP) PO SCH (09:39)
[2021-03-10] MEDS: NICOTINE POLACRILEX 2 MG GUM BC PRN ×2 (09:40→17:56)
[2021-03-10] MEDS: traZODone HCL 50 MG TABLET (FP) PO SCH (21:21)
[2021-03-10] MEDS: MELATONIN 5 MG TABLETS PO SCH (21:21)
[2021-03-10] MEDS: THIAMINE HCL 100 MG TABLET (FP) PO SCH (21:21)
[2021-03-11] MEDS: NICOTINE 10 MG CARTRIDGE (INHALER) IH PRN ×4 (06:37→21:21)
[2021-03-11] MEDS: NICOTINE 21 MG/24 HOURS TOPICAL PATCH TD SCH (09:58)
[2021-03-11] MEDS: PRENATAL VITAMINS W/ FOLIC ACID TABLET (FP) PO SCH (09:58)
[2021-03-11] MEDS: NICOTINE POLACRILEX 2 MG GUM BC PRN ×2 (12:20→19:27)
[2021-03-11] MEDS: traZODone HCL 50 MG TABLET (FP) PO SCH (21:20)
[2021-03-11] MEDS: THIAMINE HCL 100 MG TABLET (FP) PO SCH (21:20)
[2021-03-11] MEDS: MELATONIN 5 MG TABLETS PO SCH (21:20)
[2021-03-12] MEDS: NICOTINE 10 MG CARTRIDGE (INHALER) IH PRN ×3 (08:06→21:21)
[2021-03-12] MEDS: PRENATAL VITAMINS W/ FOLIC ACID TABLET (FP) PO SCH (09:53)
[2021-03-12] MEDS: NICOTINE 21 MG/24 HOURS TOPICAL PATCH TD SCH (09:53)
[2021-03-12] MEDS: NICOTINE POLACRILEX 2 MG GUM BC PRN (09:54)
[2021-03-12] MEDS: hydrOXYzine PAMOATE 25 MG CAPSULE (FP) PO PRN ×2 (09:55→21:19)
[2021-03-12] MEDS: traZODone HCL 50 MG TABLET (FP) PO SCH (21:19)
[2021-03-12] MEDS: MELATONIN 5 MG TABLETS PO SCH (21:19)
[2021-03-12] MEDS: THIAMINE HCL 100 MG TABLET (FP) PO SCH (21:19)
[2021-03-13] MEDS: NICOTINE POLACRILEX 2 MG GUM BC PRN ×2 (07:56→17:19)
[2021-03-13] MEDS: PRENATAL VITAMINS W/ FOLIC ACID TABLET (FP) PO SCH (09:52)
[2021-03-13] MEDS: NICOTINE 21 MG/24 HOURS TOPICAL PATCH TD SCH (09:53)
[2021-03-13] MEDS: NICOTINE 10 MG CARTRIDGE (INHALER) IH PRN ×2 (09:54→23:09)
[2021-03-13] MEDS: THIAMINE HCL 100 MG TABLET (FP) PO SCH (21:10)
[2021-03-13] MEDS: hydrOXYzine PAMOATE 25 MG CAPSULE (FP) PO PRN (21:10)
[2021-03-13] MEDS: traZODone HCL 50 MG TABLET (FP) PO SCH (21:10)
[2021-03-13] MEDS: MELATONIN 5 MG TABLETS PO SCH (21:10)
[2021-03-14] MEDS: PRENATAL VITAMINS W/ FOLIC ACID TABLET (FP) PO SCH (09:50)
[2021-03-14] MEDS: NICOTINE 21 MG/24 HOURS TOPICAL PATCH TD SCH (09:50)
[2021-03-14] MEDS: NICOTINE 10 MG CARTRIDGE (INHALER) IH PRN ×3 (09:51→19:20)
[2021-03-14] MEDS: MELATONIN 5 MG TABLETS PO SCH (21:14)
[2021-03-14] MEDS: traZODone HCL 100 MG TABLET (FP) PO SCH (21:14)
[2021-03-14] MEDS: THIAMINE HCL 100 MG TABLET (FP) PO SCH (21:15)
[2021-03-15] MEDS: NICOTINE 10 MG CARTRIDGE (INHALER) IH PRN ×3 (06:39→18:31)
[2021-03-15] MEDS: PRENATAL VITAMINS W/ FOLIC ACID TABLET (FP) PO SCH (09:51)
[2021-03-15] MEDS: NICOTINE 21 MG/24 HOURS TOPICAL PATCH TD SCH (09:51)
[2021-03-15] MEDS: NICOTINE POLACRILEX 2 MG GUM BC PRN ×2 (09:51→19:53)
[2021-03-15] MEDS: THIAMINE HCL 100 MG TABLET (FP) PO SCH (21:31)
[2021-03-15] MEDS: MELATONIN 5 MG TABLETS PO SCH (21:31)
[2021-03-15] MEDS: traZODone HCL 100 MG TABLET (FP) PO SCH (21:31)
[2021-03-16] MEDS: NICOTINE 10 MG CARTRIDGE (INHALER) IH PRN ×4 (06:36→22:14)
[2021-03-16] MEDS: PRENATAL VITAMINS W/ FOLIC ACID TABLET (FP) PO SCH (09:43)
[2021-03-16] MEDS: NICOTINE 21 MG/24 HOURS TOPICAL PATCH TD SCH (09:43)
[2021-03-16] MEDS: NICOTINE POLACRILEX 2 MG GUM BC PRN (19:04)
[2021-03-16] MEDS: THIAMINE HCL 100 MG TABLET (FP) PO SCH (22:13)
[2021-03-16] MEDS: traZODone HCL 100 MG TABLET (FP) PO SCH (22:13)
[2021-03-16] MEDS: MELATONIN 5 MG TABLETS PO SCH (22:14)
[2021-03-17] MEDS: NICOTINE 10 MG CARTRIDGE (INHALER) IH PRN ×3 (06:19→21:28)
[2021-03-17] MEDS: PRENATAL VITAMINS W/ FOLIC ACID TABLET (FP) PO SCH (10:05)
[2021-03-17] MEDS: NICOTINE POLACRILEX 2 MG GUM BC PRN (10:05)
[2021-03-17] MEDS: NICOTINE 21 MG/24 HOURS TOPICAL PATCH TD SCH (10:05)
[2021-03-17] MEDS: traZODone HCL 100 MG TABLET (FP) PO SCH (21:27)
[2021-03-17] MEDS: MELATONIN 5 MG TABLETS PO SCH (21:27)
[2021-03-17] MEDS: THIAMINE HCL 100 MG TABLET (FP) PO SCH (21:27)
[2021-03-18] MEDS: NICOTINE 10 MG CARTRIDGE (INHALER) IH PRN ×4 (06:43→21:29)
[2021-03-18] MEDS: PRENATAL VITAMINS W/ FOLIC ACID TABLET (FP) PO SCH (09:56)
[2021-03-18] MEDS: NICOTINE 21 MG/24 HOURS TOPICAL PATCH TD SCH (09:56)
[2021-03-18] MEDS: NICOTINE POLACRILEX 2 MG GUM BC PRN (13:08)
[2021-03-18] MEDS: THIAMINE HCL 100 MG TABLET (FP) PO SCH (21:29)
[2021-03-18] MEDS: MELATONIN 5 MG TABLETS PO SCH (21:29)
[2021-03-18] MEDS: traZODone HCL 100 MG TABLET (FP) PO SCH (21:29)
[2021-03-19] MEDS: NICOTINE 10 MG CARTRIDGE (INHALER) IH PRN ×3 (06:53→21:33)
[2021-03-19] MEDS: PRENATAL VITAMINS W/ FOLIC ACID TABLET (FP) PO SCH (09:43)
[2021-03-19] MEDS: NICOTINE 21 MG/24 HOURS TOPICAL PATCH TD SCH (09:43)
[2021-03-19] MEDS: NICOTINE POLACRILEX 2 MG GUM BC PRN (09:44)
[2021-03-19] MEDS: THIAMINE HCL 100 MG TABLET (FP) PO SCH (21:31)
[2021-03-19] MEDS: traZODone HCL 100 MG TABLET (FP) PO SCH (21:31)
[2021-03-19] MEDS: MELATONIN 5 MG TABLETS PO SCH (21:31)
[2021-03-20] MEDS: hydrOXYzine PAMOATE 25 MG CAPSULE (FP) PO PRN ×3 (02:42→22:27)
[2021-03-20] MEDS: PRENATAL VITAMINS W/ FOLIC ACID TABLET (FP) PO SCH (10:05)
[2021-03-20] MEDS: NICOTINE 21 MG/24 HOURS TOPICAL PATCH TD SCH (10:06)
[2021-03-20] MEDS: NICOTINE 10 MG CARTRIDGE (INHALER) IH PRN ×3 (10:07→22:29)
[2021-03-20] MEDS: traZODone HCL 100 MG TABLET (FP) PO SCH (22:27)
[2021-03-20] MEDS: THIAMINE HCL 100 MG TABLET (FP) PO SCH (22:27)
[2021-03-20] MEDS: MELATONIN 5 MG TABLETS PO SCH (22:28)
[2021-03-21] MEDS: PRENATAL VITAMINS W/ FOLIC ACID TABLET (FP) PO SCH (10:14)
[2021-03-21] MEDS: NICOTINE 21 MG/24 HOURS TOPICAL PATCH TD SCH (10:14)
[2021-03-21] MEDS: hydrOXYzine PAMOATE 25 MG CAPSULE (FP) PO PRN (10:15)
[2021-03-21] MEDS: NICOTINE 10 MG CARTRIDGE (INHALER) IH PRN ×2 (10:15→21:46)
[2021-03-21] MEDS: THIAMINE HCL 100 MG TABLET (FP) PO SCH (21:45)
[2021-03-21] MEDS: traZODone HCL 100 MG TABLET (FP) PO SCH (21:45)
[2021-03-21] MEDS: MELATONIN 5 MG TABLETS PO SCH (21:47)
[2021-03-22] MEDS: PRENATAL VITAMINS W/ FOLIC ACID TABLET (FP) PO SCH (10:10)
[2021-03-22] MEDS: NICOTINE 10 MG CARTRIDGE (INHALER) IH PRN ×3 (10:10→22:19)
[2021-03-22] MEDS: NICOTINE 21 MG/24 HOURS TOPICAL PATCH TD SCH (10:10)
[2021-03-22] MEDS: hydrOXYzine PAMOATE 25 MG CAPSULE (FP) PO PRN ×2 (10:11→22:18)
[2021-03-22] MEDS: traZODone HCL 100 MG TABLET (FP) PO SCH (22:17)
[2021-03-22] MEDS: THIAMINE HCL 100 MG TABLET (FP) PO SCH (22:17)
[2021-03-22] MEDS: MELATONIN 5 MG TABLETS PO SCH (22:18)
[2021-03-23 06:54] VITALS: TEMP 97.1
[2021-03-23] MEDS: NICOTINE 21 MG/24 HOURS TOPICAL PATCH TD SCH (09:44)
[2021-03-23] MEDS: PRENATAL VITAMINS W/ FOLIC ACID TABLET (FP) PO SCH (09:44)
[2021-03-23] MEDS: NICOTINE POLACRILEX 2 MG GUM BC PRN ×2 (09:45→17:18)
[2021-03-23] MEDS: NICOTINE 10 MG CARTRIDGE (INHALER) IH PRN ×2 (14:39→19:49)
[2021-03-23] MEDS: THIAMINE HCL 100 MG TABLET (FP) PO SCH (22:24)
[2021-03-23] MEDS: hydrOXYzine PAMOATE 25 MG CAPSULE (FP) PO PRN (22:24)
[2021-03-23] MEDS: traZODone HCL 100 MG TABLET (FP) PO SCH (22:24)
[2021-03-23] MEDS: MELATONIN 5 MG TABLETS PO SCH (22:24)
[2021-03-24 06:59] VITALS: BP 130/95; PULSE 66
[2021-03-24] MEDS: NICOTINE 10 MG CARTRIDGE (INHALER) IH PRN (08:57)
== END 2021-03-24 09:17 | disposition home or self-care (01) | DRG 772 ==
LOC: YASAS 15:29 → Y5N 15:37
PROVIDERS: ADMIT Allergy & Immunology; ATTEND Allergy & Immunology
PROC: HZ42ZZZ Group Counseling for Substance Abuse Treatment, Cognitive-Behavioral (ICD-10-PCS; principal; 2021-03-07)
DX: F11.20 Opioid dependence, uncomplicated (principal); F14.20 Cocaine dependence, uncomplicated; F13.20 Sedative, hypnotic or anxiolytic dependence, uncomplicated; F12.20 Cannabis dependence, uncomplicated; F17.210 Nicotine dependence, cigarettes, uncomplicated; F19.282 Other psychoactive substance dependence with psychoactive substance-induced sleep disorder; F19.24 Other psychoactive substance dependence with psychoactive substance-induced mood disorder; F41.8 Other specified anxiety disorders; G47.00 Insomnia, unspecified; R63.4 Abnormal weight loss; Z68.23 Body mass index [BMI] 23.0-23.9, adult; Z56.0 Unemployment, unspecified; Z59.0 Homelessness
CPT/HCPCS: 36415; 87389; C9803; U0003; U0005

== ENCOUNTER 2022-06-16 15:09 | Inpatient (IN) | payer OTHER ==
[2022-06-16 17:23] VITALS: BMI 25.0
[2022-06-16] MEDS ORDERED: ONDANSETRON *ODT* 4 MG TABLET SL PRN (18:10)
[2022-06-16] MEDS ORDERED: DICYCLOMINE HCL 10 MG CAPSULE PO PRN (18:10)
[2022-06-16] MEDS ORDERED: IBUPROFEN 400 MG TABLET (FP) PO PRN (18:10)
[2022-06-16] MEDS ORDERED: MAG HYDROX/AL HYDROX/SIMETH 30 ML UNIT-DOSE CUP PO PRN (18:10)
[2022-06-16] MEDS ORDERED: BENZOCAINE/MENTHOL (CHLORASEPTIC ) LOZENGE MM PRN (18:10)
[2022-06-16] MEDS ORDERED: ACETAMINOPHEN 325 MG TABLET (FP) PO PRN ×2 (18:10)
[2022-06-16] MEDS ORDERED: P-EPHED 60MG/TRIPROLIDI 2.5MG TABLET PO PRN (18:10)
[2022-06-16] MEDS ORDERED: BISMUTH SUBSALICYLATE 524 MG/30 ML PO PRN (18:10)
[2022-06-16] MEDS ORDERED: IBUPROFEN 600 MG TABLET (FP) PO PRN (18:10)
[2022-06-16] MEDS ORDERED: LOPERAMIDE HCL 2 MG CAPSULE PO PRN (18:10)
[2022-06-16] MEDS ORDERED: guaiFENesin 200 MG/10 ML 10 ML UNIT-DOSE CUPS PO PRN (18:10)
[2022-06-16] MEDS ORDERED: POLYETHYLENE GLYCOL (HEALTHYLAX) 3350 17 GM PACKET PO PRN (18:10)
[2022-06-16] MEDS ORDERED: NALOXONE HCL (KLOXXADO) 8 MG SPRAY NS PRN (18:10)
[2022-06-16] MEDS ORDERED: MAGNESIUM HYDROX 2400MG/30ML ORAL SUSPENSION 30 ML CUP PO PRN (18:10)
[2022-06-16] MEDS: diazePAM 5 MG TABLET PO SCH (22:34)
[2022-06-16] MEDS: THIAMINE HCL 100 MG TABLET (FP) PO SCH (22:34)
[2022-06-16] MEDS: NICOTINE 10 MG CARTRIDGE (INHALER) IH PRN (23:20)
[2022-06-17] MEDS: diazePAM 5 MG TABLET PO SCH ×4 (05:05→22:17)
[2022-06-17] MEDS: NICOTINE 14 MG/24 HOURS TOPICAL PATCH TD SCH (10:16)
[2022-06-17] MEDS: PRENATAL VITAMINS W/ FOLIC ACID TABLET (FP) PO SCH (10:16)
[2022-06-17] MEDS: hydrOXYzine PAMOATE 25 MG CAPSULE (FP) PO PRN (10:17)
[2022-06-17] MEDS: METHOCARBAMOL 500 MG TABLET PO PRN (10:17)
[2022-06-17] MEDS: NICOTINE POLACRILEX 2 MG GUM BUC PRN ×2 (10:18→17:52)
[2022-06-17] MEDS: NICOTINE 10 MG CARTRIDGE (INHALER) IH PRN ×2 (10:19→17:53)
[2022-06-17 14:58] LABS: ALBUMIN 3.6 g/dl (3.4-5.0); BLOOD UREA NITROGEN 8.9 mg/dL (7-18); CALCIUM 9.1 mg/dL (8.5-10.1)
[2022-06-17 15:01] LABS: CREATININE 0.8 mg/dL (0.55-1.3)
[2022-06-17 15:02] LABS: BILIRUBIN,TOTAL 0.3 mg/dL (0.2-1); TOT PROT 7.1 g/dl (6.4-8.2)
[2022-06-17 15:11] LABS: MCH 28.5 pg (25.7-33.7); MCHC 32.6 g/dl (32.0-35.9); MEAN CELL VOLUME 87.5 fl (80-96); MEAN PLT VOLUME 9.6 fl (7.5-11.1); PLATELET COUNT 273 10^3/uL (134-434); RBC 4.92 M/mm3 (4.00-5.60); RDW 14.2 % (11.9-15.9); WHITE BLOOD COUNT 6.8 K/mm3 (4.0-10.0)
[2022-06-17] MEDS: THIAMINE HCL 100 MG TABLET (FP) PO SCH (22:17)
[2022-06-17] MEDS: traZODone HCL 100 MG TABLET (FP) PO PRN (22:17)
[2022-06-18] MEDS: diazePAM 5 MG TABLET PO SCH ×3 (05:22→22:15)
[2022-06-18] MEDS: PRENATAL VITAMINS W/ FOLIC ACID TABLET (FP) PO SCH (10:41)
[2022-06-18] MEDS: diazePAM 5 MG TABLET PO PRN ×2 (10:43→18:01)
[2022-06-18] MEDS: NICOTINE 14 MG/24 HOURS TOPICAL PATCH TD SCH (10:45)
[2022-06-18] MEDS: NICOTINE 10 MG CARTRIDGE (INHALER) IH PRN ×2 (10:46→22:11)
[2022-06-18 12:13] LABS: HIV INTERPRETATION NEGATIVE (NEGATIVE)
[2022-06-18] MEDS: NICOTINE POLACRILEX 2 MG GUM BUC PRN ×3 (14:03→22:11)
[2022-06-18] MEDS: traZODone HCL 100 MG TABLET (FP) PO PRN (22:15)
[2022-06-18] MEDS: THIAMINE HCL 100 MG TABLET (FP) PO SCH (22:16)
[2022-06-19] MEDS: diazePAM 5 MG TABLET PO SCH ×2 (06:11→17:21)
[2022-06-19] MEDS: NICOTINE 14 MG/24 HOURS TOPICAL PATCH TD SCH (10:12)
[2022-06-19] MEDS: PRENATAL VITAMINS W/ FOLIC ACID TABLET (FP) PO SCH (10:12)
[2022-06-19] MEDS: diazePAM 5 MG TABLET PO PRN (10:13)
[2022-06-19] MEDS: NICOTINE 10 MG CARTRIDGE (INHALER) IH PRN ×2 (10:15→14:40)
[2022-06-19] MEDS: NICOTINE POLACRILEX 2 MG GUM BUC PRN ×2 (13:41→22:30)
[2022-06-19] MEDS: THIAMINE HCL 100 MG TABLET (FP) PO SCH (22:29)
[2022-06-19] MEDS: traZODone HCL 100 MG TABLET (FP) PO PRN (22:29)
[2022-06-20] MEDS ORDERED: diazePAM 5 MG TABLET PO ONE (06:00)
[2022-06-20] MEDS: PRENATAL VITAMINS W/ FOLIC ACID TABLET (FP) PO SCH (10:45)
[2022-06-20] MEDS: hydrOXYzine PAMOATE 25 MG CAPSULE (FP) PO PRN (10:46)
[2022-06-20] MEDS: NICOTINE 10 MG CARTRIDGE (INHALER) IH PRN ×2 (10:46→18:17)
[2022-06-20] MEDS: METHOCARBAMOL 500 MG TABLET PO PRN (10:46)
[2022-06-20] MEDS: NICOTINE 14 MG/24 HOURS TOPICAL PATCH TD SCH (10:46)
[2022-06-20] MEDS: NICOTINE POLACRILEX 2 MG GUM BUC PRN (18:17)
[2022-06-20 18:23] VITALS: BP 141/85; PULSE 108; RESP 18; TEMP 98.4
== END 2022-06-20 18:32 | disposition other institution (70) | DRG 773 ==
LOC: YASAS 15:09 → Y6N 21:50
PROVIDERS: ADMIT Allergy & Immunology; ATTEND Surgery
PROC: HZ2ZZZZ Detoxification Services for Substance Abuse Treatment (ICD-10-PCS; principal; 2022-06-16)
DX: F13.230 Sedative, hypnotic or anxiolytic dependence with withdrawal, uncomplicated (principal); F11.20 Opioid dependence, uncomplicated; F14.20 Cocaine dependence, uncomplicated; F15.10 Other stimulant abuse, uncomplicated; F17.210 Nicotine dependence, cigarettes, uncomplicated; F19.280 Other psychoactive substance dependence with psychoactive substance-induced anxiety disorder; F19.282 Other psychoactive substance dependence with psychoactive substance-induced sleep disorder; Z56.0 Unemployment, unspecified; Z59.00 Homelessness unspecified
CPT/HCPCS: 36415; 80053; 85027; 86780; 87389; C9803-CS; U0003; U0005

== ENCOUNTER 2022-06-20 18:39 | Inpatient (IN) | payer OTHER ==
[2022-06-20] MEDS ORDERED: ACETAMINOPHEN 325 MG TABLET (FP) PO PRN (19:11)
[2022-06-20] MEDS ORDERED: POLYETHYLENE GLYCOL (HEALTHYLAX) 3350 17 GM PACKET PO PRN (19:11)
[2022-06-20] MEDS ORDERED: guaiFENesin 200 MG/10 ML 10 ML UNIT-DOSE CUPS PO PRN (19:11)
[2022-06-20] MEDS ORDERED: LOPERAMIDE HCL 2 MG CAPSULE PO PRN (19:11)
[2022-06-20] MEDS ORDERED: BENZOCAINE/MENTHOL (CHLORASEPTIC ) LOZENGE MM PRN (19:11)
[2022-06-20] MEDS ORDERED: hydrOXYzine PAMOATE 25 MG CAPSULE (FP) PO PRN (19:11)
[2022-06-20] MEDS ORDERED: NICOTINE 10 MG CARTRIDGE (INHALER) IH PRN (19:11)
[2022-06-20] MEDS ORDERED: MAG HYDROX/AL HYDROX/SIMETH 30 ML UNIT-DOSE CUP PO PRN (19:11)
[2022-06-20] MEDS ORDERED: P-EPHED 60MG/TRIPROLIDI 2.5MG TABLET PO PRN (19:11)
[2022-06-20] MEDS ORDERED: IBUPROFEN 400 MG TABLET (FP) PO PRN (19:11)
[2022-06-20] MEDS ORDERED: MAGNESIUM HYDROX 2400MG/30ML ORAL SUSPENSION 30 ML CUP PO PRN (19:11)
[2022-06-20] MEDS ORDERED: MELATONIN 5 MG TABLETS PO SCH (22:00)
[2022-06-20] MEDS ORDERED: THIAMINE HCL 100 MG TABLET (FP) PO SCH (22:00)
[2022-06-20] MEDS ORDERED: traZODone HCL 50 MG TABLET (FP) PO ONE (22:00)
[2022-06-21] MEDS ORDERED: PRENATAL VITAMINS W/ FOLIC ACID TABLET (FP) PO SCH (10:00)
[2022-06-21] MEDS ORDERED: NICOTINE 7 MG/24 HOURS TOPICAL PATCH TD SCH (10:00)
[2022-06-21 20:38] VITALS: BP 151/93; PULSE 97; RESP 18; TEMP 97.1
== END 2022-06-21 20:55 | disposition home or self-care (01) | DRG 772 ==
LOC: YASAS 18:39 → Y3E 18:41
PROVIDERS: ADMIT Allergy & Immunology; ATTEND Psychiatry & Neurology Pain Medicine
PROC: HZ42ZZZ Group Counseling for Substance Abuse Treatment, Cognitive-Behavioral (ICD-10-PCS; principal; 2022-06-20)
DX: F14.20 Cocaine dependence, uncomplicated (principal); F13.20 Sedative, hypnotic or anxiolytic dependence, uncomplicated; F17.210 Nicotine dependence, cigarettes, uncomplicated; Z59.00 Homelessness unspecified